=== PATIENT | female | born 1960 | race Two or more races ===

== ENCOUNTER 2024-05-04 14:15 | Emergency (ER) | payer OTHER ==
[~2024-05-04] VITALS: Ht 177.8 cm; Wt 93.9 kg
[~2024-05-04 14:15] MED LIST: CATAFLAM50 MG PO; COZAAR50 MG
[2024-05-04] MEDS ORDERED: CHILDREN'S ASPI81 MG PO (15:00)
[2024-05-04 17:15] LABS: HEMATOCRIT 46.4 % (36.0-45.00); MEAN CELL VOLUME 91.9 fL (80.00-100.00); MEAN CORPUSCULAR HEMOGLOBIN 31.6 pg (27.00-32.0); MEAN CORPUSCULAR HGB CONC 34.4 g/dl (32.0-36.0); PLATELET COUNT 362 K/uL (150-450); RED BLOOD COUNT 5.05 M/uL (4.00-6.00); RED CELL DISTRIBUTION WIDTH 14.6 % (11.5-14.5)
[2024-05-04 17:39] LABS: INR 1.05; PARTIAL THROMBOPLASTIN TIME 25.5 SECONDS (22.0-34.0); PROTHROMBIN TIME 11.4 SECONDS (9.0-11.5)
[2024-05-04 18:00] LABS: BILIRUBIN TOTAL 0.32 mg/dL (0.3-1.2); CALCIUM 9.3 mg/dL (8.5-10.1); CREATININE SERUM 0.84 mg/dL (0.55-1.02); GFR 68.93; GLOBULINA 3.2 G/DL (2.4-3.5); MAGNESIUM 2.2 mg/dL (1.8-2.4); POTASSIUM 4.15 mEq/L (3.5-5.1); TOTAL PROTEIN 7.2 gm/dL (6.4-8.2); TSH 1.67 uIU/mL (0.358-3.74)
[2024-05-04 18:32] LABS: URINE APPEARANCE Clear; URINE BILIRRUBIN Negative (NEGATIVE); URINE BLOOD Negative; URINE COLOR Yellow; URINE GLUCOSE Negative (NEGATIVE); URINE KETONE Negative (NEGATIVE); URINE LEUKOCYTE Small; URINE NITRATE Negative; URINE PROTEIN Negative (NEGATIVE); URINE UROBILINOGEN 0.2 E.U./dl
[2024-05-04 18:38] LABS: URINE BACTERIA 315.5 uL (0.0-1933); URINE EPITHELIAL CELLS 9.4 uL (0.0-38.8); URINE WBC 30.1 uL (0.0-23.2)
[2024-05-04 18:47] LABS: URINE RBC 0.2 uL (0.0-20.8)
== END 2024-05-04 19:42 | disposition home or self-care (01) ==
LOC: ER 14:17
PROVIDERS: General Practice
DX: R00.2 Palpitations (principal); I10 Essential (primary) hypertension